=== PATIENT | female | born 1970 | race Caucasian/White ===

== ENCOUNTER 2017-04-29 20:39 | Emergency (ER) | payer SELFPAY ==
[2017-04-29] MEDS ORDERED: AMOXICILLIN/CLAVULANATE POT 875/125 MG TAB PO ONE (20:51)
[2017-04-29] MEDS ORDERED: TDAP ADULT 0.5 ML INJ (BOOSTRIX) IM ONE (20:51)
--- NOTE | 2017-04-29 20:52 | EDPHY ---
H & P Time Seen by Provider: 04/29/17 20:47 HPI/ROS: 47-year-old female presents complaining a provoked dog bite to right forearm while out walking her dog. Police obtained the offending dog and will notify the patient about rabies tomorrow. Review of systems As per HPI General no fever no chills no weakness HEENT no eye pain no eye discharge. No eye redness, no sore throat Respiratory no cough, no shortness of breath Cardiac no chest pain, no peripheral edema GI no abdominal pain, no diarrhea, no constipation, no nausea, no vomiting no flank pain, no hematuria, no dysuria Musculoskeletal no myalgias, no joint pain Heme no easy bruising, no easy bleeding Endo no polyuria, no polydipsia Skin no rashes, no pruritus Neuro no syncope, no dizziness, no headaches Psych is no suicidal ideation, no homicidal ideation Past Medical/Surgical History: asthma Social History: Denies alcohol or drug use Smoking Status: Unknown if ever smoked Physical Exam: 47-year-old female alert and oriented Alert and oriented in no acute distress nontoxic appearance, afebrile Atraumatic normocephalic Neck no JVD Lungs clear to auscultation, no respiratory distress Heart regular rate and rhythm Extremities no cyanosis clubbing edema Right distal dorsal forearm with 2 petite puncture wounds, with adjacent mild swelling No gaping wounds, no palpable or visible foreign body Full range of motion digits, wrist, elbow, normal supination pronation of forearm Constitutional: Initial Vital Signs Temperature (C) 36.8 C 04/29/17 20:54 Heart Rate 110 H 04/29/17 20:54 Respiratory Rate 20 04/29/17 20:54 Blood Pressure 203/124 H 04/29/17 20:54 O2 Sat (%) 94 04/29/17 20:54 O2 Delivery Mode Room Air Allergies/Adverse Reactions: codeine [Codeine] Allergy (Severe, Verified 04/29/17 20:52) latex [Latex] Allergy (Severe, Verified 04/29/17 20:52) Sulfa (Sulfonamide Antibiotics) Allergy (Intermediate, Verified 04/29/17 20:52) Rash Home Medications: Medication Instructions Recorded Albuterol Hfa Anes Only [Proair 09/05/13 Hfa Icu (*)] Medical Decision Making ED Course/Re-evaluation: Patient seen and evaluated for dog bite to right forearm Dog being tested for rabies Wounds clean and Tetanus given First dose Augmentin 875 mg p.o. given Impression Dog bite Plan Augmentin twice daily x7 days Ibuprofen or acetaminophen as needed for pain Elevate, ice Follow up with primary care physician to recheck wound Follow up with primary care physician for elevated blood pressure - Data Points Medications Given: Discontinued Medications Amoxicillin/Clavulanate Potassium (Augmentin 875mg) 875 mg PO EDNOW ONE PRN Reason: Protocol Stop: 04/29/17 20:52 Last Admin: 04/29/17 21:00 Dose: 875 mg Diphtheria/Tetanus/Acell Pertussis (Boostrix) 0.5 ml IM .ONCE ONE Stop: 04/29/17 20:52 Last Admin: 04/29/17 21:00 Dose: 0.5 ml Departure - Departure Disposition: Home, Routine, Self-Care Clinical Impression: Dog bite of arm Condition: Good Instructions: Animal Bite (ED) Referrals: NONE *PRIMARY CARE P,. [Primary Care Provider] - As per Instructions [facility] [Provider Group] - As per Instructions
[2017-04-29 20:57] VITALS: BP 203/124; PULSE 110; RESP 20; TEMP 98.2; O2SAT 94
== END 2017-04-29 21:13 | disposition home or self-care (01) ==
LOC: CED 20:39
DX: S51.851A Open bite of right forearm, initial encounter (principal); J45.909 Unspecified asthma, uncomplicated; Z23 Encounter for immunization; Z91.040 Latex allergy status; W54.0XXA Bitten by dog, initial encounter; Y99.8 Other external cause status; Y93.01 Activity, walking, marching and hiking

== ENCOUNTER 2017-12-12 20:48 | Emergency (ER) | payer OTHER ==
[2017-12-12] MEDS ORDERED: IBUPROFEN 600 MG TAB PO ONE (20:56)
--- NOTE | 2017-12-12 20:57 | EDPHY ---
H & P Time Seen by Provider: 12/12/17 20:50 HPI/ROS: CHIEF COMPLAINT: Left ankle injury HISTORY OF PRESENT ILLNESS: Just before arrival patient tangled with her 100 lb dog and rolled her left ankle injuring it. Pain mostly lateral and radiates proximally toward the knee but does not reach the proximal 3rd of the lower leg. Not associated with weakness or numbness in the foot. Worse with weight- bearing or any attempt to move or stand on it. Started just after the dog incident. REVIEW OF SYSTEMS: Eye: no change in vision or double vision ENT: no sore throat Cardiac: no chest pain or syncope Pulmonary: no cough or SOB Abdomen: no vomiting, diarrhea, abdominal pain Musculoskeletal: no back pain Skin: no rash Neuro: Intermittent mild headaches for the last 6 months with intermittent dizziness. Constitutional: no fever : no urinary symptoms , normal urination A comprehensive 10 point review of systems is otherwise negative aside from elements mentioned in the history of present illness. PAST MEDICAL HISTORY: Asthma, hypertension, knee surgery Social history: Patient is here with her son and her . Just got insurance , chosen Dr. Althea Arreola as primary care but has not seen her yet. General Appearance: Alert and conversant, cooperative. Eyes: No scleral icterus. Pupils equal and reactive extraocular motion intact. ENT, Mouth: Normal mucous membranes. Respiratory: Normal respiratory effort, breath sounds equal, lungs are clear to auscultation. No rales. Cardiovascular: Regular rate and rhythm. No murmur. Gastrointestinal: Abdomen is soft and non tender. Neurological: Alert, face symmetric, normal motor and sensory in extremities. Fluent speech, normal mentation. Skin: Warm and dry, no rashes. Musculoskeletal: Left ankle has lateral malleolar swelling and tenderness. No Achilles tenderness. No foot tenderness except proximally over the instep. Fibular tenderness extends 4 in up from the lateral malleolus. Normal range of motion of the knee with no effusion. Normal motor sensory and dorsalis pedis pulse in the foot. Psychiatric: Not agitated. Emergency Department course/MDM: 2119: X-rays reviewed with the patient includes normal tib-fib and ankle. Likely ankle sprain, air cast and crutches if needed. Ibuprofen 600 mg and ice pack. Patient declined additional pain medication. Initial blood pressure noted, it is rechecked, 205/118. She does not have clinical symptoms to suggest she is having an acute hypertensive emergency or end-organ dysfunction. She is chosen Dr. Althea Vyas from her insurance, discussed with illusionist Dr. Rick at 212. 2210: X-ray findings from radiologist discussed with the patient. She will be nonweightbearing, wear the splint, mandatory follow-up with Orthopedics next week. Small chip fracture of the lateral malleolus discussed with the patient. Smoking Status: Unknown if ever smoked Constitutional: Initial Vital Signs Temperature (C) 36.8 C 12/12/17 20:55 Heart Rate 82 12/12/17 20:55 Respiratory Rate 16 12/12/17 20:55 Blood Pressure 223/124 H 12/12/17 20:55 O2 Sat (%) 97 12/12/17 20:55 O2 Delivery Mode Room Air Allergies/Adverse Reactions: codeine [Codeine] Allergy (Severe, Verified 12/12/17 20:59) latex [Latex] Allergy (Severe, Verified 12/12/17 20:59) Sulfa (Sulfonamide Antibiotics) Allergy (Intermediate, Verified 12/12/17 20:59) Rash Home Medications: Medication Instructions Recorded Albuterol Hfa Anes Only [Proair 09/05/13 Hfa Icu (*)] Medical Decision Making - Diagnostics Imaging Results: Imaging Impressions Ankle X-Ray 12/12/17 20:56 Impression: Suspected small avulsion fracture at the lateral malleolus and associated soft tissue swelling. Tibia/Fibula X-Ray 12/12/17 20:56 Impression: Suspected small avulsion fracture at the lateral malleolus. - Data Points Medications Given: Discontinued Medications Ibuprofen (Motrin) 600 mg PO EDNOW ONE Stop: 12/12/17 20:57 Last Admin: 12/12/17 21:01 Dose: 600 mg Departure - Departure Disposition: Home, Routine, Self-Care Clinical Impression: chip fracture lateral malleolus le Left ankle sprain Qualifiers: Encounter type: initial encounter Involved ligament of ankle: unspecified ligament Qualified Code(s): S93.402A - Sprain of unspecified ligament of left ankle, initial encounter Hypertension Qualifiers: Hypertension type: unspecified Qualified Code(s): I10 - Essential (primary) hypertension Condition: Good Instructions: Ankle Sprain (ED), Hypertension (ED) Additional Instructions: Activity as tolerated. Please follow-up within the next 1-2 days to have blood pressure rechecked at primary care physician's office. Referrals: Mainor Jarquin MD [Medical Doctor] - As per Instructions Althea Wagner MD [[facility] [place] Primary Care Provider] - 1-2 days without fail (call tomorrow and tell them your in the emergency department Dr. Gomes spoke with Dr. Rick, they want to see you promptly)
[2017-12-12 21:00] VITALS: PULSE 82; RESP 16
[2017-12-12 21:41] VITALS: BP 204/116; TEMP 98.4; O2SAT 96
== END 2017-12-12 21:41 | disposition home or self-care (01) ==
LOC: CED 20:48
DX: S82.62XA Displaced fracture of lateral malleolus of left fibula, initial encounter for closed fracture (principal); S93.402A Sprain of unspecified ligament of left ankle, initial encounter; I10 Essential (primary) hypertension; J45.909 Unspecified asthma, uncomplicated; Z91.040 Latex allergy status; X58.XXXA Exposure to other specified factors, initial encounter
CPT/HCPCS: 73590-PO; 73610-PO; L4350

== ENCOUNTER 2018-06-16 22:31 | Emergency (ER) | payer OTHER ==
--- NOTE | 2018-06-16 23:20 | EDPHY ---
H & P Time Seen by Provider: 06/16/18 22:50 HPI/ROS: Chief complaint: Cough and sore throat. Poor sleeping HPI: A 48-year-old medically stable overweight woman reports being ill for approximately 7 days. At 1st it was mostly a dry cough for the last few days has been some mucoid production. At no point has she had any fevers or chills. Associated with this there has been a sore throat from the beginning which is markedly worse when she tends to cough. The cough however is keeping her up. She has tried some herbal tea as well as honey to try to medigate the cough As to exposure there is a 4-year-old granddaughter that she has been around who had and URI approximately 2 weeks ago. Further, the patient continues work, she has 2 jobs. There has been no earache associated with this but there has been a mild diffuse frontal headache as well as occipital headache. She has not noted problems when leaning forward with respect to pain in the around the sinuses. She does recall having somewhat worsening problems related to allergies 2 weeks ago as would be her norm for this time of year. Further, this past week she has been using an inhaler on a more frequent basis virtually daily rather than every other day which is her norm. ROS: Constitutional - no fevers or chills. Eyes - no discharge, or injection ENT - no earache, change in hearing, difficulty swallowing. Respiratory - No Shortness of breath, phlegm, wheezing or pleuritic chest pain. The cough is dry for the most part but at times it is phlegmy. Musculoskeletal - no joint or muscle pain. Integument - no rashes. Neurological - no headache, numbness, tingling, or paresthesias. No focal motor weakness. Immunological - no swelling or lymphadenopathy A 10 SYSTEM REVIEW OF SYSTEMS WAS PERFORMED AND WAS NEGATIVE EXCEPT PER HPI Smoking Status: Heavy smoker Physical Exam: Gen: Well developed, well nourished. Nontoxic. [afebrile] [VSS] her blood pressure is elevated, she has not tried the new medication for blood pressure that was prescribed recently. She is aware that she should get started. HEENT: Normocephalic. Ears: TMs are clear. Hearing normal. Eyes: PERRL. No conjunctival injection or pallor. no jaundice. Nose: No nasal discharge. Sinuses are nontender. Throat: Membranes are moist. Oropharynx has moderate erythema slightly worse on the right para tonsillar and pharyngeal arch on the left. Normal phonation. No exudates. Neck: Trachea is in the ML. No laryngeal tenderness. [No adenopathy] Lungs: Good air entry into both lungs. No rales rhonchi or wheezes. No air hunger. No respiratory distress. Skin: Good color, without pallor. There is no diaphoresis. Skin is warm and dry , without diaphoresis. Constitutional: Initial Vital Signs Temperature (C) 37.3 C 06/16/18 22:37 Heart Rate 106 H 06/16/18 22:37 Respiratory Rate 16 06/16/18 22:37 Blood Pressure 183/104 H 06/16/18 22:37 O2 Sat (%) 96 06/16/18 22:37 O2 Delivery Mode Room Air Allergies/Adverse Reactions: codeine [Codeine] Allergy (Severe, Verified 12/12/17 20:59) latex [Latex] Allergy (Severe, Verified 12/12/17 20:59) Sulfa (Sulfonamide Antibiotics) Allergy (Intermediate, Verified 12/12/17 20:59) Rash Penicillins Allergy (Verified 06/16/18 22:42) Home Medications: Medication Instructions Recorded Albuterol Hfa Anes Only [Proair 09/05/13 Hfa Icu (*)] Benzonatate 200 mg PO TID PRN #28 capsule 06/16/18 Doxycycline Monohydrate [Avidoxy] 100 mg PO BID #20 tablet 06/16/18 Losartan Potassium 06/16/18 Medical Decision Making - Diagnostics Imaging Results: Imaging Impressions Chest X-Ray 06/16/18 23:20 Impression: 1. Bronchitis/airways disease. 2. No definite focal pneumonia. Films reviewed by me on PACs ED Course/Re-evaluation: With a elisa discussion regarding the potential benefit of antibiotics in the lack of benefit for most patients with early signs of sinusitis. I would expect clinical resolution. She is reticent to go on any antibiotics given her sulfa and penicillin allergies as well as GI upset in the setting of Augmentin. Thereby we opted to do a chest x-ray. This chest x-ray was clear as read by the radiologist suspected pneumonia. Thus there is no compelling reason for antibiotic treatment at this point in time. Differential Diagnosis: Diagnostic considerations include, but are not limited to, the following: URI, sinusitis, pharyngitis, otitis media, pneumonia, allergy, influenza, strep throat. - Data Points Medications Given: Discontinued Medications Benzonatate (Tessalon Pearles) 200 mg PO EDNOW ONE Stop: 06/16/18 23:50 Last Admin: 06/17/18 00:01 Dose: 200 mg Point of Care Test Results: Strep Strep Throat Swab Collection 06/16/18 Date Strep Throat Swab Swab 22:49 Collection Time Strep Result Not Detected Departure - Departure Disposition: Home, Routine, Self-Care Condition: Good Instructions: Upper Respiratory Infection (ED) Additional Instructions: For cough, either use: Delsym for tsp twice daily Or Benzonatate 3 times daily as needed You may have early sinusitis. Most likely this will clear on its own. However if that pain and tenderness across the nose and the sinus near the orbit expands or gets worse, then go on the doxycycline prescription. Remember your contagious for approximately 2 more weeks Referrals: NONE *PRIMARY CARE P,. [Primary Care Provider] - As per Instructions Stand Alone Forms: Work Excuse Prescriptions: Benzonatate 200 mg PO TID PRN #28 capsule PRN Reason: cough Doxycycline Monohydrate [Avidoxy] 100 mg PO BID #20 tablet
[2018-06-16] MEDS ORDERED: BENZONATATE 100 MG CAP PO ONE (23:49)
[2018-06-16 23:57] VITALS: BP 166/99
== END 2018-06-17 00:12 | disposition home or self-care (01) ==
LOC: CED 22:31
DX: J06.9 Acute upper respiratory infection, unspecified (principal); Z88.0 Allergy status to penicillin; Z88.2 Allergy status to sulfonamides
CPT/HCPCS: 71046-PO